=== PATIENT | female | born 1975 | race Caucasian/White ===

== ENCOUNTER 2020-03-28 21:02 | Inpatient (IN) | payer OTHER ==
[~2020-03-28 21:02] MED LIST: Iopamidol-370 76% 500 ML 1 ML ONE
[2020-03-28] MEDS ORDERED: Ketorolac Tromethamine 30 MG/ML VIAL ONE (21:25)
[2020-03-28 22:07] LABS: #Basophils 0.1 thou/uL (0.0-0.2); #Eosinphils 0.1 thou/uL (0.0-0.7); #Lymphocytes 3.6 thou/uL (1.20-3.40); #Monocytes 0.6 thou/uL (0.11-0.59); #Neutrophils 5.1 thou/uL (1.40-6.50); %Basophils 0.7 % (0.0-1.0); %Eosinophils 1.4 % (0.0-10.0); %Lymphocytes 37.7 % (21.0-51.0); %Neutrophils 54.2 % (42.0-75.0); Hemoglobin 13.1 g/dL (12.0-16.0); Mean Corpuscular HGB CONC 35.5 g/dL (32.0-36.0); Mean Corpuscular Hemoglobin 33.3 pg (27.0-31.0); Mean Corpuscular Volume 93.8 fL (78.0-98.0); Mean Platelet Volume 8.7 fL (7.4-10.4); Platelet Count 231 thou/uL (130-400); RBC Distribution Width 11.8 % (11.5-14.5); Red Blood Cell (RBC) Count 3.93 mill/uL (4.20-5.40); White Blood Cell (WBC) Count 9.5 thou/uL (4.8-10.8)
--- NOTE | 2020-03-28 22:17 | ULT ---
LEFT LOWER EXTREMITY VENOUS DUPLEX EXAM: Date: 03/28/2020 HISTORY: Left leg pain and swelling. History of deep venous thrombosis. FINDINGS: Real-time color Doppler evaluation of the left lower extremity was performed from groin to calf. This includes evaluation of the common femoral, superficial and profunda femoral, , popliteal, and naval aircrewman mechanical ior tibial veins. This shows some nonocclusive thrombus within the deep venous system with more linear appearing thromb us within the superficial femoral vein proximally, and also some nonocclusive thrombus seen at the po pliteal vein level. IMPRESSION: Evidence of deep venous thrombosis of the left lower extremity. 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 The changes within the more proximal aspect of the superficial vein and the proximal t high has a more linear appearance which may represent some chronic scarring related to thrombus. The changes at the popliteal vein level could be old versus new change. In reviewing the 03/06/2020 examination, the more proximal changes are very similar in appearance com patible with the thought that these are chronic in nature, but the changes at the popliteal vein magede l appear new. POS: OFF
[2020-03-28 22:20] LABS: INR-International Normal Ratio 1.1; PTT 33.6 sec (22.9-36.1); Prothrombin Time 13.7 sec (12.0-14.7)
[2020-03-28 22:21] LABS: D-Dimer Test 0.48 *mcg/mL (0.27-0.43)
--- NOTE | 2020-03-28 22:21 | CT ---
CT ANGIO OF CHEST PERFORMED WITH IV CONTRAST ENHANCEMENT WITH 3D RECONSTRUCTIONS: Date: 03/28/2020 HISTORY: Left lower chest pain. History of PE. COMPARISON: 03/06/2020 exam. FINDINGS: The lungs are clear of any infiltrative process. No pleural effusions or pulmonary nodules. Parenchym al scarring is seen in the right base related to some osteophytic change. No significant mediastinal or hilar adenopathy. The thoracic aorta is normal in caliber. There is good pulmonary artery opacification. There is no CT evidence for pulmonary embolus. Visualized liver parenchyma is unremarkable. Post cholecystectomy change is noted. IMPRESSION: No CT evidence for pulmonary embolus. POS: OFF
[2020-03-28 22:28] LABS: ALT (SGPT) 10 U/L (8-55); AST (SGOT) 16 U/L (5-34); Albumin 4.3 g/dL (3.5-5.0); Alkaline Phosphatase 62 U/L (40-110); Anion Gap 16 mmol/L (10-20); BUN (Urea Nitrogen) 13 mg/dL (7.0-18.7); Bilirubin, Total 0.4 mg/dL (0.2-1.2); Calc. Creatinine Clearance 0 mL/min (70-130); Calcium 8.8 mg/dL (7.8-10.44); Carbon Dioxide 19 mmol/L (22-29); Chloride 106 mmol/L (98-107); Estimated GFR-MDRD 70; Globulin 3.2 g/dL (2.4-3.5); Glucose 78 mg/dL (70-105); Potassium 3.6 mmol/L (3.5-5.1); Protein, Total 7.5 g/dL (6.0-8.3); Sodium 137 mmol/L (136-145)
[2020-03-28] MEDS ORDERED: Enoxaparin Sodium 100 MG/ML SYRINGE ONE (23:19)
[2020-03-29] MEDS ORDERED: Acetaminophen 650 MG Suppository PR PRN (00:31)
[2020-03-29 00:32] VITALS: BMI 31.6
[2020-03-29] MEDS: Acetaminophen 325 MG TAB PO PRN ×4 (00:54→22:13)
[2020-03-29 04:11] LABS: #Basophils 0.1 thou/uL (0.0-0.2); #Eosinphils 0.2 thou/uL (0.0-0.7); #Monocytes 0.6 thou/uL (0.11-0.59); #Neutrophils 3.5 thou/uL (1.40-6.50); %Basophils 0.9 % (0.0-1.0); %Eosinophils 1.8 % (0.0-10.0); %Lymphocytes 48.7 % (21.0-51.0); %Monocytes 6.9 % (0.0-10.0); %Neutrophils 41.6 % (42.0-75.0); Hemoglobin 12.6 g/dL (12.0-16.0); Mean Corpuscular HGB CONC 34.6 g/dL (32.0-36.0); Mean Corpuscular Hemoglobin 32.4 pg (27.0-31.0); Mean Corpuscular Volume 93.8 fL (78.0-98.0); Mean Platelet Volume 8.3 fL (7.4-10.4); Platelet Count 223 thou/uL (130-400); RBC Distribution Width 11.7 % (11.5-14.5); Red Blood Cell (RBC) Count 3.89 mill/uL (4.20-5.40); White Blood Cell (WBC) Count 8.3 thou/uL (4.8-10.8)
[2020-03-29 04:17] LABS: INR-International Normal Ratio 1.1; Prothrombin Time 14.2 sec (12.0-14.7)
[2020-03-29 04:26] LABS: Lactic Acid 0.4 mmol/L (0.5-2.2)
[2020-03-29 04:30] LABS: Anion Gap 10 mmol/L (10-20); BUN (Urea Nitrogen) 11 mg/dL (7.0-18.7); Calc. Creatinine Clearance 133 mL/min (70-130); Calcium 8.3 mg/dL (7.8-10.44); Carbon Dioxide 22 mmol/L (22-29); Chloride 109 mmol/L (98-107); Estimated GFR-MDRD 75; Glucose 82 mg/dL (70-105); Potassium 3.6 mmol/L (3.5-5.1); Sodium 137 mmol/L (136-145)
--- NOTE | 2020-03-29 06:32 | HP ---
TIME OF ASSESSMENT: 1200. PRIMARY CARE PHYSICIAN: None. CHIEF COMPLAINT: Right lower extremity pain and swelling. HISTORY OF PRESENT ILLNESS: Ms. Silva is a 44-year-old woman with a history of blood clotting disorder (she does not recall the name, but states she has a history of thrombophilia) who has a history of chronic DVTs. She has been on anticoagulation for years and has been on Xarelto, Lovenox and Coumadin in the past. She has been most recently on Coumadin for years and states that she has been compliant with her medication. She takes 7.5 mg p.o. daily and presents to the emergency department due to concerns for new DVT. She developed left lower extremity pain and swelling since Saturday that has progressively worsened. She also complained of left lower chest wall discomfort and left-sided back pain. She has a history of PE that was diagnosed 10 years ago. She denies any shortness of breath. No cough or hemoptysis. The patient denies any recent trauma to her extremity, long car rides or flights. She was prompted by her primary care physician to come in to the emergency department today. The patient reports having some issues with urinary hesitancy and dysuria for the last couple of days. She states that her urine appears more cloudy than usual. Insists that she maintains adequate fluid intake. Denies having any fevers or chills at home. Has not noted any nausea, vomiting, or abdominal discomfort. Denies any hematuria. The patient states she is concerned she is developing a UTI. EMERGENCY DEPARTMENT COURSE: In the emergency department, the patient underwent an EKG that showed heart rate of 74, normal sinus rhythm. She had laboratory studies done that demonstrated a normal white blood cell count. She did have a slightly elevated D-dimer of 0.48. INR was subtherapeutic at 1.1. Renal function appeared stable. LFTs unremarkable. She had a CT angiogram of the chest that showed no evidence of PE. A venous Doppler was done demonstrating evidence of DVT of the left lower extremity. Some changes deemed to be chronic in nature. There were changes at the popliteal vein, felt to be old versus new. The patient was started on Lovenox and being admitted for observation while undergoing up dosing of her Coumadin. For her back pain, the patient receives 30 mg of IV Toradol. PAST MEDICAL HISTORY: 1. Anxiety. 2. Chronic history of DVT. 3. History of PE, 10 years ago. 4. Peripheral neuropathy. 5. Thrombophilia, unknown type. PAST SURGICAL HISTORY: 1. x2. 2. Cholecystectomy. 3. . SOCIAL HISTORY: The patient currently resides at . Per ED notes, there was difficulty obtaining medications. The patient insisted that she has been compliant with Coumadin. She states she recently quit smoking. Denies any alcohol consumption or illicit drug use. She is dependent. ALLERGIES: NO KNOWN DRUG ALLERGIES. CURRENT MEDICATIONS: 1. Coumadin 7.5 mg p.o. daily, requires verification as the patient seems unsure. 2. Gabapentin for peripheral neuropathy, dose unknown. PHYSICAL EXAMINATION: GENERAL: The patient appears to be well developed and in no acute distress. VITAL SIGNS: Temperature 98.7, pulse 76, blood pressure 130/80, respirations 14, O2 saturation 98% on room air. HEENT: Normocephalic and atraumatic. Pupils are equal, round, and reactive to light. Sclerae are anicteric. Oropharynx is clear. NECK: Supple. 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 It is fluctuant and slightly tender on palpation, but she reports . LUNGS: Clear to auscultation without wheezes, rales, or rhonchi. CARDIAC: Regular rate and rhythm. ABDOMEN: Soft, nontender. Mild suprapubic discomfort with palpation. No renal angle tenderness. EXTREMITIES: Left lower extremity notable for swelling, but no erythema. Tender to palpation in the calf. Right lower extremity unremarkable. Peripheral pulses intact. SKIN: Warm and dry. NEUROLOGIC: Alert and oriented x3. No neuro deficits on exam. INVESTIGATIONS: As mentioned above in HPI. IMPRESSION AND PLAN: Ms. Silva is a 44-year-old woman presenting with increasing pain and swelling to the left lower extremity, who is known to have a history of thrombophilia, unknown type, on chronic anticoagulation with Coumadin for history of long-standing deep venous thrombosis. She is being admitted for management of the followin. Left lower extremity pain and swelling secondary to acute on chronic deep venous thrombosis. The patient has been started on Lovenox and being admitted for observation while undergoing up dosing of her Coumadin. INR today showed a subtherapeutic level of 1.1. The patient states she has been compliant with medications. However, there is concern for her being able to get her medications all the time. Consider Case Management consult for social issues affecting her ability to be adherent with medications. Pharmacy to dose Coumadin, INR to be monitored. 2. Dysuria. We will obtain urinalysis and urine culture. . 3. Symptomatic urinary tract infection. 4. Anxiety. Reconcile home medications once verified. 5. Peripheral neuropathy. Per ED report, she takes Keppra. However, the patient states that she has not taken Keppra for many years. She is currently taking gabapentin. We will reconcile once the dose is verified. 6. Gastrointestinal prophylaxis with famotidine. 7. Deep venous thrombosis prophylaxis. No mechanical SCDs. As mentioned above, patient being treated for acute on chronic deep venous thrombosis. 8. Code status is full. No medical power of trade mark attorney. Case discussed with attending, who agrees upon care as described above. Job ID: [id number]
[2020-03-29 07:00] LABS: Bacteria/HPF None Seen HPF (None Seen); Bilirubin Negative (Negative); Blood, Urine Negative (Negative); Clarity Clear (Clear); Glucose, Urine (Dipstick) Normal (Negative); Ketone, Urine Negative (Negative); Leukocyte Negative Leu/uL (Negative); Nitrite Negative (Negative); Protein, Urine (Dipstick) Negative (Neg-Trace); RBC/HPF 0-3 HPF (0-3); Specific Gravity, Urine 1.018 (1.002-1.036); Squamous Epithelial 0-3 HPF (0-3); Urobilinogen Normal mg/dL (Less than 2); WBC/HPF None Seen HPF (0-3); pH, Urine 5.5 (5.0-9.0)
[2020-03-29 07:03] LABS: Urine Culture Reflex No No
[2020-03-29] MEDS: Enoxaparin Sodium 100 MG/ML SYRINGE SC SCH ×2 (08:32→22:13)
[2020-03-29] MEDS: Cefdinir 300 MG CAP PO SCH ×2 (08:32→22:12)
[2020-03-29] MEDS ORDERED: Non-Formulary Item 1 EACH (Esomeprazole Magnesium [Nexium] 20 MG) PO SCH (09:00)
[2020-03-29] MEDS ORDERED: Non-Formulary Item 1 EACH (Mv-Min/Iron/Folic/Calcium/Vitk [Women's Multivitamin Tablet] 1 PO SCH (09:00)
[2020-03-29] MEDS ORDERED: Pseudoephedrine HCl 30 MG TAB PO SCH (09:00)
[2020-03-29] MEDS ORDERED: Non-Formulary Item 1 EACH (Gabapentin [Neurontin] 800 MG) PO SCH (09:00)
[2020-03-29] MEDS: Gabapentin 400 MG CAP PO SCH ×2 (10:08→22:12)
[2020-03-29] MEDS: Loratadine 10 MG TAB PO SCH (10:09)
[2020-03-29] MEDS: Multivitamin W/ Minerals 1 TAB PO SCH (10:09)
[2020-03-29] MEDS: Pseudoephedrine HCl 30 MG TAB PO SCH (10:09)
[2020-03-29] MEDS ORDERED: levETIRAcetam 500 MG TAB PO SCH (10:15)
[2020-03-29 11:49] LABS: SARS-CoV-2 MS2 Positive; SARS-CoV-2 N Gene Negative; SARS-CoV-2 S Gene Negative; SARS-CoV-2 by NAA Not Detected (NotDetected); SARS-CoV-2 orf1ab Negative
--- NOTE | 2020-03-29 13:38 | PDOC.HOSPP ---
- Subjective Encounter Date: 03/29/20 Encounter Time: 11:30 Subjective: Patient was seen for follow-up for DVT. She states that she is feeling a little better but still has a little bit of pain that is controlled with Tylenol. She states she has been compliant with her Coumadin. - Objective Vital Signs & Weight: Vital Signs (12 hours) Temp Pulse Resp BP Pulse Ox 03/29/20 12:29 98.4 F 87 18 122/90 97 03/29/20 08:00 97 03/29/20 07:56 98.7 F 79 18 125/75 97 Weight Weight 214 lb 6.4 oz I&O: 03/28/20 03/29/20 03/30/20 06:59 06:59 06:59 Intake Total 490 240 Balance 490 240 Result Diagrams: 03/29/20 03:58 03/29/20 03:58 Hospitalist ROS - Medication Medications: Active Medications Generic Name Dose Route Start Last Admin Trade Name Freq PRN Reason Stop Dose Admin Acetaminophen 650 mg 03/29/20 00:31 03/29/20 08:31 Tylenol PO 650 mg Q4H PRN Administration Headache/Fever/Mild Pain (1-3) Cefdinir 300 mg 03/29/20 09:00 03/29/20 08:32 Omnicef PO 300 mg BID ALL Administration Enoxaparin Sodium 100 mg 03/29/20 09:00 03/29/20 08:32 Lovenox SC 100 mg 0900,2100 ALL Administration Gabapentin 800 mg 03/29/20 09:00 03/29/20 10:08 Neurontin PO 800 mg BID ALL Administration Iron/Minerals/Multivitamins 1 tab 03/29/20 09:00 03/29/20 10:09 Theragran M PO 1 tab DAILY ALL Administration Loratadine 10 mg 03/29/20 09:00 03/29/20 10:09 Claritin PO 10 mg DAILY ALL Administration Pantoprazole Sodium 40 mg 03/29/20 09:00 03/29/20 10:09 Protonix PO 40 mg DAILY ALL Administration Pseudoephedrine HCl 30 mg 03/29/20 09:00 03/29/20 10:09 Sudafed PO 30 mg DAILY ALL Administration - Exam General Appearance: NAD, awake alert ENT: normocephalic atraumatic, moist mucosa Heart: RRR, no murmur, no gallops, no rubs Respiratory: CTAB, no wheezes, no rales, no ronchi Gastrointestinal: soft, non-tender, non-distended, normal bowel sounds Extremities - other findings: Swelling to left lower extremity, tender to palpation in the calf Skin - other findings: Warm and dry Hosp A/P (1) DVT (deep venous thrombosis) Code(s): I82.409 - ACUTE EMBOLISM AND THOMBOS UNSP DEEP VN UNSP LOWER EXTREMITY Status: Acute (2) Anxiety Code(s): F41.9 - ANXIETY DISORDER, UNSPECIFIED Status: Chronic (3) Peripheral neuropathy Code(s): G62.9 - POLYNEUROPATHY, UNSPECIFIED Status: Chronic - Plan Continue Lovenox twice daily along with Coumadin, INR still subtherapeutic at 1.1 Information regarding Coumadin clinic to be given to patientpatient states she may be moving out of town soon Home medications restarted
--- NOTE | 2020-03-29 13:43 | PDOC.FMACP ---
Advance Care Planning - Problem (1) Palliative care encounter Status: Acute Code(s): Z51.5 - ENCOUNTER FOR PALLIATIVE CARE (2) DVT (deep venous thrombosis) Status: Acute Code(s): I82.409 - ACUTE EMBOLISM AND THOMBOS UNSP DEEP VN UNSP LOWER EXTREMITY (3) Peripheral neuropathy Status: Chronic Code(s): G62.9 - POLYNEUROPATHY, UNSPECIFIED - Note Participants: patient, palliative care Summary: Palliative Care introduced Advanced Care Planning, opportunity to decline. The diagnosis, prognosis and goals of care were discussed. Appropriate forms and documentation to accomplish the goals of care were discussed. All questions were answered. Ms Silva elected to complete a MPOA, original and copy given to the patient, copy placed on chart for medical records to capture. Directive to physician left with patient to review, will follow up. Confirmed full resuscitation measures. The Palliative Care Team will be engaged to assist with completion of any outstanding forms that are needed. Time Spent (mins): 20
[2020-03-29] MEDS ORDERED: Warfarin Sodium 7.5 MG TAB PO SCH (17:00)
[2020-03-29] MEDS: Warfarin Sodium 7.5 MG TAB PO SCH (17:34)
[2020-03-29] MEDS: levETIRAcetam 500 MG TAB PO SCH (22:13)
[2020-03-30 05:43] LABS: Hemoglobin 13.3 g/dL (12.0-16.0); Platelet Count 214 thou/uL (130-400)
[2020-03-30] MEDS: Enoxaparin Sodium 100 MG/ML SYRINGE SC SCH ×2 (08:19→20:38)
[2020-03-30] MEDS: Loratadine 10 MG TAB PO SCH (08:20)
[2020-03-30] MEDS: levETIRAcetam 500 MG TAB PO SCH ×2 (08:20→20:36)
[2020-03-30] MEDS: Gabapentin 400 MG CAP PO SCH ×2 (08:20→20:37)
[2020-03-30] MEDS: Pseudoephedrine HCl 30 MG TAB PO SCH (08:20)
[2020-03-30] MEDS: Cefdinir 300 MG CAP PO SCH ×2 (08:20→20:36)
[2020-03-30] MEDS: Multivitamin W/ Minerals 1 TAB PO SCH (08:21)
[2020-03-30 09:34] LABS: INR-International Normal Ratio 1.1; PTT 42.8 sec (22.9-36.1); Prothrombin Time 13.7 sec (12.0-14.7)
[2020-03-30] MEDS ORDERED: Benzonatate 100 MG CAP PO PRN (11:04)
[2020-03-30] MEDS: Cepastat Lozenges 1 LOZ PO PRN ×3 (12:51→23:34)
[2020-03-30] MEDS: Acetaminophen 500 MG TAB PO PRN ×2 (15:54→20:43)
[2020-03-30 16:42] LABS: Prothrombin Time 13.3 sec (12.0-14.7)
[2020-03-30 16:43] LABS: PTT 40.6 sec (22.9-36.1)
[2020-03-30] MEDS: Warfarin Sodium 7.5 MG TAB PO SCH (17:10)
--- NOTE | 2020-03-30 17:10 | PDOC.HOSPP ---
- Subjective Encounter Date: 03/30/20 Encounter Time: 10:30 Subjective: Patient states she is feeling ok this morning but has a dry cough and her throat is sore. States understanding of hematology consult and bridging coumadin with lovenox. - Objective Vital Signs & Weight: Vital Signs (12 hours) Temp Pulse Resp BP Pulse Ox 03/30/20 11:12 99.0 F 91 20 126/76 95 03/30/20 07:18 98.2 F 74 20 127/79 96 Weight Weight 214 lb 6.4 oz I&O: 03/29/20 03/30/20 03/31/20 06:59 06:59 06:59 Intake Total 490 3050 Balance 490 3050 Result Diagrams: 03/30/20 05:21 03/30/20 05:21 Additional Labs: Laboratory Tests 03/30/20 09:16 PT 13.7 INR 1.1 APTT 42.8 H Hospitalist ROS - Review of Systems ENT: reports: throat pain Respiratory: reports: cough (dry) - Medication Medications: Active Medications Generic Name Dose Route Start Last Admin Trade Name Freq PRN Reason Stop Dose Admin Acetaminophen 1,000 mg 03/30/20 11:04 03/30/20 15:54 Tylenol PO 1,000 mg Q4H PRN Administration Headache/Fever or Pain Cefdinir 300 mg 03/29/20 09:00 03/30/20 08:20 Omnicef PO 300 mg BID ALL Administration Enoxaparin Sodium 100 mg 03/29/20 09:00 03/30/20 08:19 Lovenox SC 100 mg 0900,2100 ALL Administration Gabapentin 800 mg 03/29/20 09:00 03/30/20 08:20 Neurontin PO 800 mg BID ALL Administration Iron/Minerals/Multivitamins 1 tab 03/29/20 09:00 03/30/20 08:21 Theragran M PO 1 tab DAILY ALL Administration Levetiracetam 500 mg 03/29/20 21:00 03/29/20 22:13 Keppra PO 500 mg HS ALL Administration Levetiracetam 1,000 mg 03/30/20 09:00 03/30/20 08:20 Keppra PO 1,000 mg QAM ALL Administration Loratadine 10 mg 03/29/20 09:00 03/30/20 08:20 Claritin PO 10 mg DAILY ALL Administration Pantoprazole Sodium 40 mg 03/29/20 09:00 03/30/20 08:21 Protonix PO 40 mg DAILY ALL Administration Pseudoephedrine HCl 30 mg 03/29/20 09:00 03/30/20 08:20 Sudafed PO 30 mg DAILY ALL Administration Throat Lozenges 1 chente 03/30/20 11:04 03/30/20 12:51 Cepastat Lozenges PO 1 chente Q2H PRN Administration Sore Throat Warfarin Sodium 7.5 mg 03/29/20 17:00 03/29/20 17:34 Coumadin PO 7.5 mg DAILY@1700 ALL Administration - Exam General Appearance: NAD, awake alert ENT - other findings: redness to throat, drainage noted Neck: supple, no lymphadenopathy Heart: RRR, no murmur Respiratory: CTAB, no wheezes, no rales, no ronchi, normal chest expansion Gastrointestinal: soft, non-tender, non-distended Skin - other findings: bruising noted to abdomen from lovenox injections Hosp A/P (1) DVT (deep venous thrombosis) Code(s): I82.409 - ACUTE EMBOLISM AND THOMBOS UNSP DEEP VN UNSP LOWER EXTREMITY Status: Acute (2) Anxiety Code(s): F41.9 - ANXIETY DISORDER, UNSPECIFIED Status: Chronic (3) Peripheral neuropathy Code(s): G62.9 - POLYNEUROPATHY, UNSPECIFIED Status: Chronic - Plan Continue Lovenox twice daily along with Coumadin, INR still subtherapeutic at 1.1 Hematology consultation Tessalon perles and lozenges as needed, continue claritin
--- NOTE | 2020-03-30 20:01 | CON ---
DATE OF CONSULTATION: REASON FOR CONSULT: DVT. HISTORY OF PRESENT ILLNESS: Ms. Silva is a pleasant 44-year-old female with a history of blood clotting disorder, who has had chronic DVT starting at the age of 28. She had a PE in her early 30s, but none sent. She presented to the emergency room by recommendation of her primary care Dr. Mahoney as her INR was not therapeutic at 1.1. She underwent a vascular ultrasound which confirmed left lower extremity DVT. She was in this facility approximately one month ago in the ER for leg pain. A venous ultrasound was done which showed chronic DVT. Ultrasound on this presentation showed more acute changes in the popliteal vein. The patient's INR on arrival was 1.1. She takes 7.5 mg of Coumadin daily. Her last INR was February in our emergency room, prior to that was in October. She lives in the [facility] after attending rehab for substance abuse. She states she has never had a hypercoagulable panel. She has no family history of blood clots, although her father and grandfather both had heart attacks. She does have a Mirena IUD in and has heavy menses lasting 7-10 days. No chest pain. No shortness of breath at this time. PAST MEDICAL HISTORY: 1. History of DVTs. 2. History of PE over 13 years ago. 3. Peripheral neuropathy. PAST SURGICAL HISTORY: 1. Cholecystectomy. 2. . ALLERGIES: NO KNOWN DRUG ALLERGIES. HOME MEDICATIONS: 1. Gabapentin. 2. Coumadin. 3. Multivitamin. 4. Keppra. 5. Nexium. 6. Benadryl. FAMILY HISTORY: Is positive for coronary artery disease. No blood clots. SOCIAL HISTORY: , grown son. Quit smoking 15 months ago. No current alcohol or illicit drug use. REVIEW OF SYSTEMS: A 10-point review of systems is negative except for noted in HPI. PHYSICAL EXAMINATION: VITAL SIGNS: Temperature is 99.0, pulse is 91, respiratory rate 20, blood pressure is 126/76. She is 95% on room air. GENERAL: This is a well-developed, well-nourished female, in no acute distress. HEENT: Normocephalic, atraumatic. Pupils are equal and reactive to light. NECK: Supple. CV: Regular rate and rhythm. LUNGS: Clear. ABDOMEN: Soft and nontender. Bowel sounds are positive. EXTREMITIES: Her left lower extremity significantly larger than her right. There is no erythema or tenderness. SKIN: No rash. HEMATOLOGICAL: No petechiae or purpura. NEUROLOGICAL: Nonfocal. PERTINENT LABORATORY DATA AND X-RAYS: Current WBCs 8.3, hemoglobin 13.3, hematocrit 38.6, platelet count is 214,000, 41% neutrophils, 48% lymphocytes PT is 13.7, INR is 1.1, and PTT is 42.8. Sodium 137, potassium 3.6, chloride 109, CO2 is 22, BUN is 11, creatinine 0.82, lactic acid 0.4, calcium 8.3, total bilirubin is 0.4, AST 16, ALT is 10, alkaline phosphatase is 64. Troponin is negative. Serum total protein 7.5, albumin 4.3, globulin 3.2. Urine was negative. COVID negative. Radiology per HPI. ASSESSMENT: 1. [id number] deep venous thrombosis of the left lower extremity. 2. Subtherapeutic INR. DISCUSSION: The patient is currently on therapeutic Lovenox. Her Coumadin has been resumed at 7.5 mg. She will need close following of her INR and I recommend enrollment into the Coumadin Clinic. We will ask case management for assistance with this. She has never had a hypercoagulable panel drawn. We will draw that here. She did have a DVT on Xarelto, but has been fairly stable on Coumadin. She may have antiphospholipid syndrome. She understands that she will have lifelong anticoagulation. She actually has quite a good grasp of her disease process. We will follow along with her hospital course. Thank you for the consult. Job ID: [id number]
[2020-03-31] MEDS: Cepastat Lozenges 1 LOZ PO PRN ×4 (04:56→21:43)
[2020-03-31] MEDS: Acetaminophen 500 MG TAB PO PRN ×3 (04:58→17:16)
[2020-03-31 07:05] LABS: PTT 39.7 sec (22.9-36.1); Prothrombin Time 13.4 sec (12.0-14.7)
[2020-03-31] MEDS: Multivitamin W/ Minerals 1 TAB PO SCH (08:21)
[2020-03-31] MEDS: Gabapentin 400 MG CAP PO SCH ×2 (08:21→20:47)
[2020-03-31] MEDS: Cefdinir 300 MG CAP PO SCH ×2 (08:21→20:48)
[2020-03-31] MEDS: levETIRAcetam 500 MG TAB PO SCH ×2 (08:22→20:48)
[2020-03-31] MEDS: Loratadine 10 MG TAB PO SCH (08:22)
[2020-03-31] MEDS: Enoxaparin Sodium 100 MG/ML SYRINGE SC SCH ×2 (09:11→20:49)
[2020-03-31] MEDS: Pseudoephedrine HCl 30 MG TAB PO SCH (09:11)
[2020-03-31] MEDS ORDERED: Magnesium Oxide 400 MG TAB PO PRN (10:13)
--- NOTE | 2020-03-31 13:14 | PDOC.HOSPP ---
- Subjective Encounter Date: 03/31/20 Encounter Time: 08:30 Subjective: Patient states that she has some left ear pain and has not had any bowel movement today. Her INR is still around 1. - Objective Vital Signs & Weight: Vital Signs (12 hours) Temp Pulse Resp BP Pulse Ox 03/31/20 11:53 97.7 F 81 20 118/83 96 03/31/20 08:21 95 03/31/20 07:45 98.0 F 81 20 114/80 95 03/31/20 05:25 98.4 F 84 17 130/91 H 95 Weight Weight 214 lb 6.4 oz I&O: 03/30/20 03/31/20 04/01/20 06:59 06:59 06:59 Intake Total 3050 2280 240 Balance 3050 2280 240 Result Diagrams: 03/30/20 05:21 03/30/20 05:21 Hospitalist ROS - Medication Medications: Active Medications Generic Name Dose Route Start Last Admin Trade Name Freq PRN Reason Stop Dose Admin Acetaminophen 1,000 mg 03/30/20 11:04 03/31/20 12:31 Tylenol PO 1,000 mg Q4H PRN Administration Headache/Fever or Pain Cefdinir 300 mg 03/29/20 09:00 03/31/20 08:21 Omnicef PO 300 mg BID ALL Administration Enoxaparin Sodium 100 mg 03/29/20 09:00 03/31/20 09:11 Lovenox SC 100 mg 0900,2100 ALL Administration Gabapentin 800 mg 03/29/20 09:00 03/31/20 08:21 Neurontin PO 800 mg BID ALL Administration Iron/Minerals/Multivitamins 1 tab 03/29/20 09:00 03/31/20 08:21 Theragran M PO 1 tab DAILY ALL Administration Levetiracetam 500 mg 03/29/20 21:00 03/30/20 20:36 Keppra PO 500 mg HS ALL Administration Levetiracetam 1,000 mg 03/30/20 09:00 03/31/20 08:22 Keppra PO 1,000 mg QAM ALL Administration Loratadine 10 mg 03/29/20 09:00 03/31/20 08:22 Claritin PO 10 mg DAILY ALL Administration Magnesium Oxide 400 mg 03/31/20 10:13 03/31/20 12:31 Magnesium Oxide PO 400 mg DAILYPRN PRN Administration Constipation Pantoprazole Sodium 40 mg 03/29/20 09:00 03/31/20 08:22 Protonix PO 40 mg DAILY ALL Administration Pseudoephedrine HCl 30 mg 03/29/20 09:00 03/31/20 09:11 Sudafed PO 30 mg DAILY ALL Administration Throat Lozenges 1 chente 03/30/20 11:04 03/31/20 08:23 Cepastat Lozenges PO 1 chente Q2H PRN Administration Sore Throat - Exam General Appearance: NAD, awake alert Eye: PERRL ENT: normocephalic atraumatic Neck: supple, JVD Heart: RRR, normal peripheral pulses Respiratory: CTAB, normal chest expansion Gastrointestinal: soft, normal bowel sounds Neurological: no focal deficits Psychiatric: A&O x 3 Hosp A/P - Plan (1) DVT (deep venous thrombosis) Code(s): I82.409 - ACUTE EMBOLISM AND THOMBOS UNSP DEEP VN UNSP LOWER EXTREMITY Status: Acute (2) Anxiety Code(s): F41.9 - ANXIETY DISORDER, UNSPECIFIED Status: Chronic (3) Peripheral neuropathy Code(s): G62.9 - POLYNEUROPATHY, UNSPECIFIED Status: Chronic - Plan Continue Lovenox twice daily along with Coumadin, INR still subtherapeutic at 1.1 Hematology consultation Tessalon perles and lozenges as needed, continue claritin Constipation -Scheduled stool softener. Ear pain -Does not appear any hearing deficits. -Analgesic and otic drops Subtherapeutic INR Increase the Coumadin dose. Will monitor closely. DVT despite being on Xarelto. Concern for antiphospholipid syndrome Hypercoagulable panel has been sent out.
[2020-03-31] MEDS ORDERED: Warfarin Sodium 10 MG TAB PO SCH (17:00)
[2020-03-31] MEDS: Warfarin Sodium 10 MG TAB PO SCH (17:17)
[2020-03-31] MEDS: HYDROcodone/Acetaminophen 5/325 mg Tablet PO PRN (20:48)
[2020-03-31] MEDS: Senokot S 8.6-50 MG TAB PO SCH (20:48)
[2020-03-31] MEDS: diphenhydrAMINE 25 MG CAP PO PRN (21:43)
[2020-04-01] MEDS: Acetaminophen 500 MG TAB PO PRN ×4 (00:53→17:06)
[2020-04-01] MEDS: Cepastat Lozenges 1 LOZ PO PRN ×3 (00:54→08:42)
[2020-04-01 06:15] LABS: PTT 40.2 sec (22.9-36.1); Prothrombin Time 13.4 sec (12.0-14.7)
[2020-04-01] MEDS: Loratadine 10 MG TAB PO SCH (08:40)
[2020-04-01] MEDS: Gabapentin 400 MG CAP PO SCH ×2 (08:40→20:29)
[2020-04-01] MEDS: Senokot S 8.6-50 MG TAB PO SCH ×2 (08:41→20:28)
[2020-04-01] MEDS: Cefdinir 300 MG CAP PO SCH ×2 (08:42→20:28)
[2020-04-01] MEDS: Multivitamin W/ Minerals 1 TAB PO SCH (08:42)
[2020-04-01] MEDS: Enoxaparin Sodium 100 MG/ML SYRINGE SC SCH ×2 (08:42→20:29)
[2020-04-01] MEDS: Pseudoephedrine HCl 30 MG TAB PO SCH (09:20)
[2020-04-01] MEDS: levETIRAcetam 500 MG TAB PO SCH ×2 (09:20→20:29)
[2020-04-01 11:13] LABS: Factor VIII Test 169.6 % ACTIVE (56-157)
--- NOTE | 2020-04-01 12:06 | PDOC.HOSPP ---
- Subjective Encounter Date: 04/01/20 Encounter Time: 10:20 Subjective: Patient's INR still 1.0. She is stable. Her Coumadin home dose is usually around 7.5 at home. However she is for the most part subtherapeutic. She has a known history of subtherapeutic INR. Patient is also homeless at this point. Alternatives like Xarelto cannot be considered given her social situation as well as lack of insurance. So we had no choice except continue Coumadin until iwe have therapeutic INR above 2. - Objective Vital Signs & Weight: Vital Signs (12 hours) Temp Pulse Resp BP Pulse Ox 04/01/20 08:42 94 L 04/01/20 07:45 98.4 F 78 20 115/74 94 L Weight Weight 214 lb 6.4 oz I&O: 03/31/20 04/01/20 04/02/20 06:59 06:59 06:59 Intake Total 2280 1200 240 Balance 2280 1200 240 Result Diagrams: 03/30/20 05:21 03/30/20 05:21 Hospitalist ROS - Medication Medications: Active Medications Generic Name Dose Route Start Last Admin Trade Name Freq PRN Reason Stop Dose Admin Acetaminophen 1,000 mg 03/30/20 11:04 04/01/20 09:20 Tylenol PO 1,000 mg Q4H PRN Administration Headache/Fever or Pain Hydrocodone Bitart/Acetaminophen 1 tab 03/31/20 10:12 03/31/20 20:48 [place] 5/325 PO 1 tab Q8H PRN Administration Mild-Moderate Pain (1-5) Cefdinir 300 mg 03/29/20 09:00 04/01/20 08:42 Omnicef PO 300 mg BID ALL Administration Diphenhydramine HCl 25 mg 03/29/20 08:53 03/31/20 21:43 Benadryl PO 25 mg HS PRN Administration Insomnia Enoxaparin Sodium 100 mg 03/29/20 09:00 04/01/20 08:42 Lovenox SC 100 mg 0900,2100 ALL Administration Gabapentin 800 mg 03/29/20 09:00 04/01/20 08:40 Neurontin PO 800 mg BID ALL Administration Iron/Minerals/Multivitamins 1 tab 03/29/20 09:00 04/01/20 08:42 Theragran M PO 1 tab DAILY ALL Administration Levetiracetam 500 mg 03/29/20 21:00 03/31/20 20:48 Keppra PO 500 mg HS ALL Administration Levetiracetam 1,000 mg 03/30/20 09:00 04/01/20 09:20 Keppra PO 1,000 mg QAM ALL Administration Loratadine 10 mg 03/29/20 09:00 04/01/20 08:40 Claritin PO 10 mg DAILY ALL Administration Pantoprazole Sodium 40 mg 03/29/20 09:00 04/01/20 08:42 Protonix PO 40 mg DAILY ALL Administration Pseudoephedrine HCl 30 mg 03/29/20 09:00 04/01/20 09:20 Sudafed PO 30 mg DAILY ALL Administration Senna/Docusate Sodium 2 tab 03/31/20 21:00 04/01/20 08:41 Senokot S PO 2 tab BID ALL Administration Throat Lozenges 1 chente 03/30/20 11:04 04/01/20 08:42 Cepastat Lozenges PO 1 chente Q2H PRN Administration Sore Throat Warfarin Sodium 12.5 mg 03/31/20 17:00 03/31/20 17:17 Coumadin PO 12.5 mg 1700 ALL Administration - Exam General Appearance: NAD, awake alert Eye: PERRL ENT: normocephalic atraumatic Neck: supple Heart: RRR Respiratory: CTAB, normal chest expansion Gastrointestinal: soft, normal bowel sounds Neurological: cranial nerve grossly intact, normal sensation to touch, no focal deficits Psychiatric: A&O x 3 Hosp A/P - Plan (1) DVT (deep venous thrombosis) Code(s): I82.409 - ACUTE EMBOLISM AND THOMBOS UNSP DEEP VN UNSP LOWER EXTREMITY Status: Acute (2) Anxiety Code(s): F41.9 - ANXIETY DISORDER, UNSPECIFIED Status: Chronic (3) Peripheral neuropathy Code(s): G62.9 - POLYNEUROPATHY, UNSPECIFIED Status: Chronic - Plan Continue Lovenox twice daily along with Coumadin, INR still subtherapeutic at 1.1 Hematology consultation Tessalon perles and lozenges as needed, continue claritin Constipation -Scheduled stool softener. Ear pain -Does not appear any hearing deficits. -Analgesic and otic drops Subtherapeutic INR Increase the Coumadin dose. Will monitor closely. DVT despite being on Xarelto. Concern for antiphospholipid syndrome Hypercoagulable panel has been sent out. 10th Her Coumadin home dose is usually around 7.5 at home. However she is for the most part subtherapeutic. She has a known history of subtherapeutic INR. Patient is also homeless at this point. Alternatives like Xarelto cannot be considered given her social situation as well as lack of insurance. So we had no choice except continue Coumadin until iwe have therapeutic INR above 2.
[2020-04-01 12:37] LABS: Protein C Activity 63 % (78-152)
[2020-04-01 12:39] LABS: HEX PHOS LA Tube 1 46.1 SEC; HEX PHOS LA Tube 2 43.7 SEC; Hexagonal Phospholipid Neut 2.4 SEC (0-8.0)
--- NOTE | 2020-04-01 12:46 | PDOC.EVN ---
Event Note - Event Note Event Note: I got message from MARY Teague that Coumadin clinic will not take uninsured patients for INR follow-up. May be she will need to try [place] for her to go. This has to be addressed at the time of discharge.
[2020-04-01 16:57] LABS: Cardiolipin IgA Ab 1.6 APL-U/mL (<14 Negative); Cardiolipin IgG Ab 0.6 GPL-U/mL (<10 Negative); EliA APS New Method **** NEW METHOD ****
[2020-04-01] MEDS: Warfarin Sodium 10 MG TAB PO SCH (17:03)
[2020-04-01] MEDS: HYDROcodone/Acetaminophen 5/325 mg Tablet PO PRN (20:28)
[2020-04-02] MEDS: HYDROcodone/Acetaminophen 5/325 mg Tablet PO PRN ×2 (05:05→14:01)
[2020-04-02] MEDS: Cepastat Lozenges 1 LOZ PO PRN (05:06)
[2020-04-02 06:34] LABS: Hemoglobin 12.9 g/dL (12.0-16.0); Platelet Count 219 thou/uL (130-400)
[2020-04-02 06:40] LABS: INR-International Normal Ratio 1.1; PTT 42.5 sec (22.9-36.1); Prothrombin Time 14.4 sec (12.0-14.7)
[2020-04-02] MEDS: Senokot S 8.6-50 MG TAB PO SCH ×2 (08:37→21:02)
[2020-04-02] MEDS: Gabapentin 400 MG CAP PO SCH ×2 (08:38→21:02)
[2020-04-02] MEDS: Pseudoephedrine HCl 30 MG TAB PO SCH (08:38)
[2020-04-02] MEDS: Multivitamin W/ Minerals 1 TAB PO SCH (08:38)
[2020-04-02] MEDS: Cefdinir 300 MG CAP PO SCH ×2 (08:38→21:02)
[2020-04-02] MEDS: Loratadine 10 MG TAB PO SCH (08:39)
[2020-04-02] MEDS: levETIRAcetam 500 MG TAB PO SCH ×2 (08:39→08:42)
[2020-04-02] MEDS: Enoxaparin Sodium 100 MG/ML SYRINGE SC SCH ×2 (09:01→21:03)
[2020-04-02] MEDS: Magnesium Citrate 300 ML BOT PO SCH (09:02)
--- NOTE | 2020-04-02 14:59 | PDOC.HOSPP ---
- Subjective Encounter Date: 04/02/20 Encounter Time: 14:57 Subjective: Ms. Silva was seen today in follow-up. She does not have any complaints. She say she feels a little tired, and has occasional dyspnea, otherwise ok. - Objective Vital Signs & Weight: Vital Signs (12 hours) Temp Pulse Resp BP Pulse Ox 04/02/20 07:28 98.5 F 83 16 128/81 96 Weight Weight 214 lb 6.4 oz I&O: 04/01/20 04/02/20 04/03/20 06:59 06:59 06:59 Intake Total 1200 1100 Balance 1200 1100 Result Diagrams: 04/02/20 06:14 04/02/20 06:14 Hospitalist ROS - Medication Medications: Active Medications Generic Name Dose Route Start Last Admin Trade Name Freq PRN Reason Stop Dose Admin Acetaminophen 1,000 mg 03/30/20 11:04 04/01/20 17:06 Tylenol PO 1,000 mg Q4H PRN Administration Headache/Fever or Pain Hydrocodone Bitart/Acetaminophen 1 tab 03/31/20 10:12 04/02/20 14:01 [place] 5/325 PO 1 tab Q8H PRN Administration Mild-Moderate Pain (1-5) Cefdinir 300 mg 03/29/20 09:00 04/02/20 08:38 Omnicef PO 300 mg BID ALL Administration Diphenhydramine HCl 25 mg 03/29/20 08:53 03/31/20 21:43 Benadryl PO 25 mg HS PRN Administration Insomnia Enoxaparin Sodium 100 mg 03/29/20 09:00 04/02/20 09:01 Lovenox SC 100 mg 0900,2100 ALL Administration Gabapentin 800 mg 03/29/20 09:00 04/02/20 08:38 Neurontin PO 800 mg BID ALL Administration Iron/Minerals/Multivitamins 1 tab 03/29/20 09:00 04/02/20 08:38 Theragran M PO 1 tab DAILY ALL Administration Levetiracetam 500 mg 03/29/20 21:00 04/02/20 08:39 Keppra PO 500 mg HS ALL Administration Levetiracetam 1,000 mg 03/30/20 09:00 04/02/20 08:42 Keppra PO 1,000 mg QAM ALL Administration Loratadine 10 mg 03/29/20 09:00 04/02/20 08:39 Claritin PO 10 mg DAILY ALL Administration Magnesium Citrate 300 ml 04/02/20 09:00 04/02/20 09:02 Citrate Of Magnesia 300 Ml Bot PO 300 ml DAILY ALL Administration Pantoprazole Sodium 40 mg 03/29/20 09:00 04/02/20 08:39 Protonix PO 40 mg DAILY ALL Administration Pseudoephedrine HCl 30 mg 03/29/20 09:00 04/02/20 08:38 Sudafed PO 30 mg DAILY ALL Administration Senna/Docusate Sodium 2 tab 03/31/20 21:00 04/02/20 08:37 Senokot S PO 2 tab BID ALL Administration Throat Lozenges 1 chente 03/30/20 11:04 04/02/20 05:06 Cepastat Lozenges PO 1 chente Q2H PRN Administration Sore Throat - Exam Eye: PERRL, anicteric sclera Heart: RRR, no murmur, no gallops, no rubs, normal peripheral pulses Respiratory: CTAB, no wheezes, no rales, no ronchi, normal chest expansion, no tachypnea Gastrointestinal: soft, non-tender, non-distended, normal bowel sounds, no palpable masses, no hepatomegaly Extremities: 1+ LE edema (edema in the left lower extremity with varicose veins) Hosp A/P (1) DVT (deep venous thrombosis) Code(s): I82.409 - ACUTE EMBOLISM AND THOMBOS UNSP DEEP VN UNSP LOWER EXTREMITY Status: Acute (2) Anxiety Code(s): F41.9 - ANXIETY DISORDER, UNSPECIFIED Status: Chronic - Plan * Acute on chronic DVT of the left lower extremity- her INR continues to be sub- therapeutic- Agree with increase of coumadin to 15mg * Continue Bridge with Lovenox * Discussed out patient management plans. She plans to move to [facility] after discharge and has [employer] Benefits, and [facility].
--- NOTE | 2020-04-02 16:43 | EKG ---
Test Reason : Blood Pressure : / mmHG Vent. Rate : 074 BPM Atrial Rate : 074 BPM P-R Int : 182 ms QRS Dur : 086 ms QT Int : 376 ms P-R-T Axes : 032 -04 014 degrees QTc Int : 417 ms Normal sinus rhythm Low voltage QRS Possible Inferior infarct , age undetermined Cannot rule out Anterior infarct , age undetermined Abnormal ECG Similar t0 FEB 2020 Confirmed by CRUZ LOCKWOOD ([id number]), material expeditor EMORY CANTU ([id number]) on 04/02/2020 4:42:55 PM Referred By: Confirmed By:CRUZ LOCKWOOD
[2020-04-02] MEDS ORDERED: Warfarin Sodium 10 MG TAB PO SCH (17:00)
[2020-04-02] MEDS: diphenhydrAMINE 25 MG CAP PO PRN (21:04)
[2020-04-03] MEDS: Cepastat Lozenges 1 LOZ PO PRN ×4 (01:01→23:10)
[2020-04-03] MEDS: HYDROcodone/Acetaminophen 5/325 mg Tablet PO PRN ×3 (01:07→23:08)
[2020-04-03 07:57] LABS: INR-International Normal Ratio 1.1; Prothrombin Time 14.2 sec (12.0-14.7)
[2020-04-03] MEDS: Cefdinir 300 MG CAP PO SCH ×2 (08:41→21:04)
[2020-04-03] MEDS: Gabapentin 400 MG CAP PO SCH ×2 (08:41→21:04)
[2020-04-03] MEDS: levETIRAcetam 500 MG TAB PO SCH ×2 (08:41→21:04)
[2020-04-03] MEDS: Senokot S 8.6-50 MG TAB PO SCH ×2 (08:42→21:04)
[2020-04-03] MEDS: Pseudoephedrine HCl 30 MG TAB PO SCH (08:42)
[2020-04-03] MEDS: Loratadine 10 MG TAB PO SCH (08:42)
[2020-04-03] MEDS: Multivitamin W/ Minerals 1 TAB PO SCH (08:42)
[2020-04-03] MEDS: Enoxaparin Sodium 100 MG/ML SYRINGE SC SCH ×2 (08:43→21:05)
[2020-04-03] MEDS: Magnesium Citrate 300 ML BOT PO SCH (09:11)
--- NOTE | 2020-04-03 14:44 | PDOC.HOSPP ---
- Subjective Encounter Date: 04/03/20 Encounter Time: 14:40 Subjective: Mws. Silva was seen today in follow-up of DVT. She does not have any new complaints. - Objective Vital Signs & Weight: Vital Signs (12 hours) Temp Pulse Resp BP Pulse Ox 04/03/20 11:34 98.3 F 77 16 124/85 98 04/03/20 08:00 96 04/03/20 07:19 98.2 F 76 16 118/78 96 Weight Weight 214 lb 6.4 oz I&O: 04/02/20 04/03/20 04/04/20 06:59 06:59 06:59 Intake Total 1100 720 Balance 1100 720 Result Diagrams: 04/02/20 06:14 04/02/20 06:14 Hospitalist ROS - Medication Medications: Active Medications Generic Name Dose Route Start Last Admin Trade Name Freq PRN Reason Stop Dose Admin Acetaminophen 1,000 mg 03/30/20 11:04 04/01/20 17:06 Tylenol PO 1,000 mg Q4H PRN Administration Headache/Fever or Pain Hydrocodone Bitart/Acetaminophen 1 tab 03/31/20 10:12 04/03/20 12:33 [place] 5/325 PO 1 tab Q8H PRN Administration Mild-Moderate Pain (1-5) Cefdinir 300 mg 03/29/20 09:00 04/03/20 08:41 Omnicef PO 300 mg BID ALL Administration Diphenhydramine HCl 25 mg 03/29/20 08:53 04/02/20 21:04 Benadryl PO 25 mg HS PRN Administration Insomnia Enoxaparin Sodium 100 mg 03/29/20 09:00 04/03/20 08:43 Lovenox SC 100 mg 0900,2100 ALL Administration Gabapentin 800 mg 03/29/20 09:00 04/03/20 08:41 Neurontin PO 800 mg BID ALL Administration Iron/Minerals/Multivitamins 1 tab 03/29/20 09:00 04/03/20 08:42 Theragran M PO 1 tab DAILY ALL Administration Levetiracetam 500 mg 03/29/20 21:00 04/02/20 08:39 Keppra PO 500 mg HS ALL Administration Levetiracetam 1,000 mg 03/30/20 09:00 04/03/20 08:41 Keppra PO 1,000 mg QAM ALL Administration Loratadine 10 mg 03/29/20 09:00 04/03/20 08:42 Claritin PO 10 mg DAILY ALL Administration Magnesium Citrate 300 ml 04/02/20 09:00 04/03/20 09:11 Citrate Of Magnesia 300 Ml Bot PO 300 ml DAILY ALL Administration Pantoprazole Sodium 40 mg 03/29/20 09:00 04/03/20 08:42 Protonix PO 40 mg DAILY ALL Administration Pseudoephedrine HCl 30 mg 03/29/20 09:00 04/03/20 08:42 Sudafed PO 30 mg DAILY ALL Administration Senna/Docusate Sodium 2 tab 03/31/20 21:00 04/03/20 08:42 Senokot S PO 2 tab BID ALL Administration Throat Lozenges 1 chente 03/30/20 11:04 04/03/20 08:42 Cepastat Lozenges PO 1 chente Q2H PRN Administration Sore Throat - Exam Eye: PERRL, anicteric sclera Heart: RRR, no murmur, no gallops, no rubs, normal peripheral pulses Respiratory: CTAB, no wheezes, no rales, no ronchi, normal chest expansion Gastrointestinal: soft, non-tender, non-distended, normal bowel sounds, no palpable masses, no hepatomegaly Extremities: no cyanosis, no edema Hosp A/P (1) DVT (deep venous thrombosis) Code(s): I82.409 - ACUTE EMBOLISM AND THOMBOS UNSP DEEP VN UNSP LOWER EXTREMITY Status: Acute (2) Anxiety Code(s): F41.9 - ANXIETY DISORDER, UNSPECIFIED Status: Chronic - Plan * Acute on chronic DVT of the left lower extremity- her INR continues to be sub- therapeutic- will increase the dose of coumadin to 20mg. If she does not have much response in the INR, then will need to consider using a different therapy, such as Eliquis or Xarelto. She admits that even though she developed a DVT while on Xarelto, she had been using elicit substances at the time, and may not have been complaint with Xarelto at the time. * Continue Bridge with Lovenox * Discussed out patient management plans. - Again discussed outpatient management plans.
[2020-04-03] MEDS ORDERED: Warfarin Sodium 10 MG TAB PO SCH (17:00)
[2020-04-03] MEDS: diphenhydrAMINE 25 MG CAP PO PRN (21:05)
[2020-04-04 05:18] LABS: INR-International Normal Ratio 1.1; Prothrombin Time 14.7 sec (12.0-14.7)
[2020-04-04] MEDS: Loratadine 10 MG TAB PO SCH (08:04)
[2020-04-04] MEDS: Cefdinir 300 MG CAP PO SCH ×2 (08:04→21:26)
[2020-04-04] MEDS: Senokot S 8.6-50 MG TAB PO SCH ×2 (08:04→21:26)
[2020-04-04] MEDS: levETIRAcetam 500 MG TAB PO SCH ×2 (08:04→21:26)
[2020-04-04] MEDS: Gabapentin 400 MG CAP PO SCH ×2 (08:04→21:26)
[2020-04-04] MEDS: HYDROcodone/Acetaminophen 5/325 mg Tablet PO PRN ×2 (08:05→16:18)
[2020-04-04] MEDS: Multivitamin W/ Minerals 1 TAB PO SCH (08:05)
[2020-04-04] MEDS: Pseudoephedrine HCl 30 MG TAB PO SCH (08:06)
[2020-04-04] MEDS: Magnesium Citrate 300 ML BOT PO SCH (08:09)
[2020-04-04] MEDS: Enoxaparin Sodium 100 MG/ML SYRINGE SC SCH (09:25)
--- NOTE | 2020-04-04 14:42 | PDOC.HOSPP ---
- Subjective Encounter Date: 04/04/20 Encounter Time: 14:41 Subjective: Ms. Silva was seen today in follow-up of DVT. She does not have any new complaints. - Objective Vital Signs & Weight: Vital Signs (12 hours) Temp Pulse Resp BP BP Pulse Ox 04/04/20 12:00 98 F 86 16 123/84 96 04/04/20 08:00 96 04/04/20 07:43 98 F 86 16 123/84 96 Weight Weight 214 lb 6.4 oz I&O: 04/03/20 04/04/20 04/05/20 06:59 06:59 06:59 Intake Total 720 1380 Balance 720 1380 Result Diagrams: 04/02/20 06:14 04/02/20 06:14 Hospitalist ROS - Medication Medications: Active Medications Generic Name Dose Route Start Last Admin Trade Name Freq PRN Reason Stop Dose Admin Acetaminophen 1,000 mg 03/30/20 11:04 04/01/20 17:06 Tylenol PO 1,000 mg Q4H PRN Administration Headache/Fever or Pain Hydrocodone Bitart/Acetaminophen 1 tab 03/31/20 10:12 04/04/20 08:05 [place] 5/325 PO 1 tab Q8H PRN Administration Mild-Moderate Pain (1-5) Cefdinir 300 mg 03/29/20 09:00 04/04/20 08:04 Omnicef PO 300 mg BID ALL Administration Diphenhydramine HCl 25 mg 03/29/20 08:53 04/03/20 21:05 Benadryl PO 25 mg HS PRN Administration Insomnia Gabapentin 800 mg 03/29/20 09:00 04/04/20 08:04 Neurontin PO 800 mg BID ALL Administration Iron/Minerals/Multivitamins 1 tab 03/29/20 09:00 04/04/20 08:05 Theragran M PO 1 tab DAILY ALL Administration Levetiracetam 500 mg 03/29/20 21:00 04/03/20 21:04 Keppra PO 500 mg HS ALL Administration Levetiracetam 1,000 mg 03/30/20 09:00 04/04/20 08:04 Keppra PO 1,000 mg QAM ALL Administration Loratadine 10 mg 03/29/20 09:00 04/04/20 08:04 Claritin PO 10 mg DAILY ALL Administration Magnesium Citrate 300 ml 04/02/20 09:00 04/04/20 08:09 Citrate Of Magnesia 300 Ml Bot PO Not Given DAILY ALL Pantoprazole Sodium 40 mg 03/29/20 09:00 04/04/20 08:05 Protonix PO 40 mg DAILY ALL Administration Pseudoephedrine HCl 30 mg 03/29/20 09:00 04/04/20 08:06 Sudafed PO 30 mg DAILY ALL Administration Senna/Docusate Sodium 2 tab 03/31/20 21:00 04/04/20 08:04 Senokot S PO 2 tab BID ALL Administration Throat Lozenges 1 chente 03/30/20 11:04 04/03/20 23:10 Cepastat Lozenges PO 1 chente Q2H PRN Administration Sore Throat - Exam Eye: PERRL, anicteric sclera Heart: RRR, no murmur, no gallops, no rubs, normal peripheral pulses Respiratory: CTAB, no wheezes, no rales, no ronchi, normal chest expansion, no tachypnea, normal percussion Gastrointestinal: soft, non-tender, non-distended, normal bowel sounds, no palpable masses, no hepatomegaly Extremities: no cyanosis, 1+ LE edema (varicose) Hosp A/P (1) DVT (deep venous thrombosis) Code(s): I82.409 - ACUTE EMBOLISM AND THOMBOS UNSP DEEP VN UNSP LOWER EXTREMITY Status: Acute (2) Anxiety Code(s): F41.9 - ANXIETY DISORDER, UNSPECIFIED Status: Chronic - Plan * Acute on chronic DVT of the left lower extremity- her INR continues to be sub- therapeutic- will change her regimen to Xarelto * Will discontinue Lovenox * Plan is for discharge home tomorrow morning on XArelto. She will be traveling tomorrow to [facility], so will give her one tablet so she will have enough until Saturday morning., when she can get the prescription filled. She will be going home with a prescription voucher for a one month free supply of Xarelto.
[2020-04-04] MEDS ORDERED: Rivaroxaban 15 MG TAB PO SCH (14:45)
[2020-04-04] MEDS ORDERED: Gabapentin 400 MG CAP PO SCH (15:15)
[2020-04-04] MEDS ORDERED: levETIRAcetam 500 MG TAB PO SCH (15:15)
--- NOTE | 2020-04-04 16:31 | PDOC.MOPN ---
Interval History: no complaints at this time, ambulatory in hallway. - Vital Signs Vital Signs: Vital Signs (12 hours) Temp Pulse Resp BP BP Pulse Ox 04/04/20 16:00 98.3 F 88 16 130/87 97 04/04/20 12:00 98 F 86 16 123/84 96 04/04/20 08:00 96 04/04/20 07:43 98 F 86 16 123/84 96 Weight Weight 214 lb 6.4 oz - Physical Exam General: Alert, Oriented x3, No acute distress HEENT: Atraumatic, PERRLA, EOMI, Mucous membr. moist/pink Lungs: Clear to auscultation, Normal air movement Cardiovascular: Regular rate, Normal S1, Normal S2, No murmurs, Gallops, Rubs Abdomen: Normal bowel sounds, Soft, No tenderness, No hepatospenomegaly, No masses Neurological: Normal speech - Labs Result Diagrams: 04/02/20 06:14 04/02/20 06:14 Lab results: Laboratory Results - last 24 hr 04/04/20 04:54: PT 14.7, INR 1.1 Status: lab reviewed by me A/P - Problem (1) DVT (deep venous thrombosis) Current Visit: Yes Code(s): I82.409 - ACUTE EMBOLISM AND THOMBOS UNSP DEEP VN UNSP LOWER EXTREMITY Status: Acute - Plan Plan: 1. thrombosis panel negative 2. requiring high dose of coumadin, remains subtherapeutic 3. Agree with Xarelto, she was using illicit drugs when last took this med which may be responsible for clot at that time 4. Follow-up PCP in [place].
[2020-04-04] MEDS: diphenhydrAMINE 25 MG CAP PO PRN (21:26)
[2020-04-04] MEDS: Rivaroxaban 15 MG TAB PO SCH (21:27)
[2020-04-04] MEDS: Cepastat Lozenges 1 LOZ PO PRN (21:33)
[2020-04-05] MEDS: HYDROcodone/Acetaminophen 5/325 mg Tablet PO PRN (00:12)
[2020-04-05] MEDS: Cepastat Lozenges 1 LOZ PO PRN (00:14)
[2020-04-05 05:55] LABS: Hemoglobin 12.7 g/dL (12.0-16.0); Platelet Count 216 thou/uL (130-400)
[2020-04-05 05:56] LABS: INR-International Normal Ratio 1.5; Prothrombin Time 18.5 sec (12.0-14.7)
[2020-04-05] MEDS: Pseudoephedrine HCl 30 MG TAB PO SCH (07:11)
[2020-04-05] MEDS: Cefdinir 300 MG CAP PO SCH (07:11)
[2020-04-05] MEDS: Rivaroxaban 15 MG TAB PO SCH (07:11)
[2020-04-05] MEDS: Gabapentin 400 MG CAP PO SCH (07:11)
[2020-04-05] MEDS: levETIRAcetam 500 MG TAB PO SCH (07:12)
[2020-04-05] MEDS: Loratadine 10 MG TAB PO SCH (07:12)
[2020-04-05] MEDS: Multivitamin W/ Minerals 1 TAB PO SCH (07:13)
[2020-04-05] MEDS: Magnesium Citrate 300 ML BOT PO SCH (07:20)
[2020-04-05] MEDS: Senokot S 8.6-50 MG TAB PO SCH (07:20)
[2020-04-05 08:07] VITALS: BP 128/81; TEMP 98
--- NOTE | 2020-04-05 12:55 | DIS ---
DATE OF ADMISSION: 03/30/2020 DATE OF DISCHARGE: 04/05/2020 PRIMARY CARE PHYSICIAN: None. DISCHARGE DISPOSITION: Home. DISCHARGE DIAGNOSES: 1. Acute on chronic deep vein thrombosis of the left lower extremity. 2. Hypercoagulopathy disorder, unknown type. 3. History of previous deep venous thrombosis. 4. History of chronic anticoagulation. 5. History of substance abuse. DISCHARGE MEDICATIONS: Include: 1. Xarelto 15 mg p.o. b.i.d. for 3 weeks followed by 20 mg daily. 2. Keppra 500 mg q.a.m. and 1000 mg q.p.m. 3. Loratadine 10 mg p.o. daily. 4. Neurontin 800 mg b.i.d. 5. Nexium 20 mg daily. 6. Benadryl 25 mg p.o. at bedtime. PROCEDURES DONE DURING THE ADMISSION: The patient had a lower extremity venous Doppler showing evidence of DVT in the left lower extremity with evidence of acute as well as chronic thrombosis. The patient had a CT angiogram of the chest, which was negative for PE. CODE STATUS: Full code. ALLERGIES: NO KNOWN DRUG ALLERGIES. HOSPITAL COURSE: Ms. Silva is a pleasant 44-year-old female who was admitted to the hospital after noticing swelling in the left lower extremity and pain. Ultrasound demonstrated a clot in the lower extremity, acute on chronic blood clot. It was originally thought that she may have had a clot while on Xarelto, but on further questioning, it appears as she was admitting to using some illicit drugs during the time and likely may have her gotten a dose or 2 of the Xarelto and was likely subtherapeutic at the time. She was originally tried on Coumadin while in the hospital, but then switched back to Xarelto due to subtherapeutic Coumadin on doses as high as 20 mg. Arrangements were made for her to go to [place], [place], where she had family there, as she was currently homeless here in [place] without much family support and she was also staying at the [facility] after running into legal trouble with regard to her substance abuse. She was given a one-month supply of Xarelto in the form of a prescription voucher. A dose of the Xarelto will be given to her on the morning of discharge and then a pill for her to take on that evening to hold her over until she can get her prescription filled. The dose of her usual medications of gabapentin and Keppra will be done the same, so that she will not be without medication. She has insurance and plans to try to get treatment at the [facility] once she leaves the hospital here. She will be discharged early tomorrow morning so that she can get on the bus to [place] at 8:00 a.m. and she says that she will have family that will be meeting her while she gets to [place], [place]. Job ID: [id number]
== END 2020-04-05 07:23 | disposition home or self-care (01) | DRG 300 ==
LOC: ERS 21:02 → T4-A 23:29 → OBSVTOIN 03-30 12:20
PROVIDERS: ADMIT Internal Medicine; ATTEND Internal Medicine
DX: I82.432 Acute embolism and thrombosis of left popliteal vein (principal); D68.59 Other primary thrombophilia; N39.0 Urinary tract infection, site not specified; Z20.828 Contact with and (suspected) exposure to other viral communicable diseases; F41.9 Anxiety disorder, unspecified; G62.9 Polyneuropathy, unspecified; K59.00 Constipation, unspecified; H92.09 Otalgia, unspecified ear; Z90.49 Acquired absence of other specified parts of digestive tract; Z79.01 Long term (current) use of anticoagulants; Z79.899 Other long term (current) drug therapy; Z87.891 Personal history of nicotine dependence
CPT/HCPCS: 36415; 71275; 80048; 80053; 81001; 81240; 81241; 82565; 83090; 83605; 84484; 85014; 85018; 85025; 85049; 85240; 85300; 85303; 85305; 85307; 85379; 85598; 85610; 85730; 86147; 87635; 93005; 96372; 96374; J1650; J1885; Q0163; Q9967; U0003